=== PATIENT | male | born 1985 | race Hispanic/Latino ===

== ENCOUNTER 2021-11-17 19:58 | Emergency (ER) | payer OTHER ==
[2021-11-17] MEDS ORDERED: Bacitracin 1 PK ONE (21:36)
[2021-11-17] MEDS ORDERED: Boostrix 0.5 ML (Tdap) VIAL (>/=7 yrs of age) ONE (21:53)
== END 2021-11-17 22:10 | disposition home or self-care (01) ==
LOC: BURERS 19:58
DX: S01.01XA Laceration without foreign body of scalp, initial encounter (principal); Z23 Encounter for immunization; W19.XXXA Unspecified fall, initial encounter
CPT/HCPCS: 12001; 70450; 90471; 90715